=== PATIENT | female | born 1975 | race African-American/Black ===

== ENCOUNTER 2017-07-25 17:00 | Emergency (ER) | payer SELFPAY ==
--- NOTE | 2017-07-25 18:23 | RAD ---
"TWO VIEW LEFT FOREARM: 07/25/17 CLINICAL HISTORY: Injury, pain. FINDINGS: | No fracture or dislocation. No radiopaque foreign body. IMPRESSION: No acute osseous abnormality left forearm. POS: [facility]"
== END 2017-07-25 18:19 | disposition home or self-care (01) ==
LOC: ERS 17:00
DX: M25.551 Pain in right hip (principal); I10 Essential (primary) hypertension; F41.9 Anxiety disorder, unspecified; F32.9 Major depressive disorder, single episode, unspecified; Z87.891 Personal history of nicotine dependence; Y04.2XXA Assault by strike against or bumped into by another person, initial encounter

== ENCOUNTER 2017-09-18 11:44 | Outpatient (CLI) | payer BC | END 2017-09-18 11:45 | disposition home or self-care (01) | LOC: BICMAMMO 11:44 | PROVIDERS: ATTEND Family Medicine | DX: Z12.31 Encounter for screening mammogram for malignant neoplasm of breast (principal); Z80.3 Family history of malignant neoplasm of breast | CPT/HCPCS: 77063; 77067 ==

== ENCOUNTER 2018-02-13 07:50 | Observation (INO) | payer BC ==
[~2018-02-13 07:50] MED LIST: ADENOSINE 60 MG/20 ML VIAL ONE
--- NOTE | 2018-02-13 08:59 | RAD ---
PA AND LATERAL CHEST: History: Chest pain radiating to the left shoulder. FINDINGS: Comparison is made with exam of 11-23-07. FINDINGS: The heart size is normal. The lungs are expanded without focal areas of consolidation, pneumothorax, or pleural effusions. No acute osseous abnormality was seen. IMPRESSION: No radiographic evidence of acute cardiopulmonary process. POS: [facility]
[2018-02-13 09:26] LABS: Bilirubin Negative (Negative); Blood, Urine Negative (Negative); Clarity CLEAR (Clear); Glucose, Urine (Dipstick) Negative (Negative); Leukocyte Negative (Negative); Nitrite Negative (Negative); Protein, Urine (Dipstick) Negative (Neg-Trace); Urobilinogen 0.2 mg/dL (0.2-1.0)
[2018-02-13 09:29] LABS: White Blood Cell (WBC) Count 8.6 thou/uL (4.8-10.8)
[2018-02-13 09:30] LABS: Hemoglobin 13.7 g/dL (12.0-16.0); Red Blood Cell (RBC) Count 4.73 mill/uL (4.20-5.40)
[2018-02-13 09:31] LABS: Mean Corpuscular HGB CONC 31.2 g/dL (32.0-36.0); Mean Corpuscular Hemoglobin 28.9 pg (27.0-31.0); Mean Corpuscular Volume 92.5 fL (78.0-98.0); RBC Distribution Width 12.6 % (11.5-14.5)
[2018-02-13 09:32] LABS: %Neutrophils 60.4 % (42.0-75.0); Mean Platelet Volume 7.8 fL (7.4-10.4); Platelet Count 278 thou/uL (130-400)
[2018-02-13 09:33] LABS: %Eosinophils 2.9 % (0.0-10.0); %Lymphocytes 30.9 % (21.0-51.0); %Monocytes 4.6 % (0.0-10.0)
[2018-02-13 09:34] LABS: #Eosinphils 0.3 thou/uL (0.0-0.7); #Lymphocytes 2.7 thou/uL (1.20-3.40); #Monocytes 0.4 thou/uL (0.11-0.59); #Neutrophils 5.2 thou/uL (1.40-6.50); %Basophils 1.1 % (0.0-1.0)
[2018-02-13 09:35] LABS: #Basophils 0.1 thou/uL (0.0-0.2)
[2018-02-13 09:36] LABS: BHCG - Serum Negative (NEGATIVE); Pregs Control Background? CLEAR/WHITE (CLR/WHITE); Pregs Control Bar Appear? YES (CONTROL BAR)
[2018-02-13 09:45] LABS: ALT (SGPT) 10 U/L (8-55); AST (SGOT) 15 U/L (5-34); Alkaline Phosphatase 56 U/L (40-150); Anion Gap 11 mmol/L (10-20); BUN (Urea Nitrogen) 11 mg/dL (7.0-18.7); Bilirubin, Total 0.8 mg/dL (0.2-1.2); CK (CPK) 135 U/L (29-168); Calc. Creatinine Clearance 0 mL/min (70-130); Calcium 8.9 mg/dL (7.8-10.44); Carbon Dioxide 20 mmol/L (22-29); Chloride 108 mmol/L (98-107); Estimated GFR-MDRD Greater than 90; Globulin 2.7 g/dL (2.4-3.5); Glucose 84 mg/dL (70-105); Lipase 39 U/L (8-78); Potassium 4.3 mmol/L (3.5-5.1); Protein, Total 6.7 g/dL (6.0-8.3); Sodium 135 mmol/L (136-145)
[2018-02-13 09:46] LABS: Specific Gravity, Urine 1.003 (1.002-1.036)
[2018-02-13 09:50] LABS: CKMB 1.4 ng/mL (0-6.6); Troponin I Less than 0.010 ng/mL (< 0.028)
--- NOTE | 2018-02-13 10:10 | ULT ---
VENOUS DOPPLER ULTRASOUND OF THE RIGHT LOWER EXTREMITY: History: Right lower extremity pain. Technique: Grayscale, color flow, and spectral doppler imaging of the deep venous system of the right lower extremity was performed. FINDINGS: There is good flow, compression, and augmentation of the right common femoral, femoral, deep femoral, popliteal, posterior tibial and greater saphenous veins. IMPRESSION: No evidence of DVT in the right lower extremity. POS: [facility]
[2018-02-13] MEDS ORDERED: Nitroglycerin 2% Ointment 1 INCH/1 GM Packet ONE (10:24)
[2018-02-13 11:25] VITALS: BMI 30.4
[2018-02-13] MEDS ORDERED: Ondansetron ODT 4 MG TAB SL PRN (11:27)
[2018-02-13] MEDS ORDERED: Ondansetron PF 4 MG/2 ML Vial IVP PRN (11:27)
[2018-02-13] MEDS ORDERED: Sodium Chloride 0.9% 1,000 ML IV SCH (11:27)
[2018-02-13] MEDS: Acetaminophen 325 MG TAB PO PRN ×2 (13:42→21:14)
[2018-02-13 13:56] LABS: Troponin I Less than 0.010 ng/mL (< 0.028)
[2018-02-13 13:59] LABS: Amphetamine Not Detected (NotDetected); Barbiturates Screen Not Detected (NotDetected); Benzodiazepine Screen Not Detected (NotDetected); Cocaine Metabolite Screen Not Detected (NotDetected); Medtox Control Line Valid? VALID (VALID); Medtox Reader # READER 4; Methadone Not Detected (NotDetected); Methamphetamine Not Detected (NotDetected); Opiate Screen Not Detected (NotDetected); Oxycodone Screen Not Detected (NotDetected); Phencyclidine (PCP) Not Detected (NotDetected); THC/Cannabinoid Screen Not Detected (NotDetected); Tricyclic Screen Not Detected (NotDetected)
[2018-02-13] MEDS ORDERED: Nicotine 14 MG PATCH TD SCH (14:00)
--- NOTE | 2018-02-13 15:45 | HP ---
DATE OF ADMISSION: 02/13/2018 CHIEF COMPLAINT: Chest pain. HISTORY OF PRESENT ILLNESS: Mrs. Noriega is a pleasant 42-year-old female who had presented to the E R this morning with some complaints of midsternal chest pain radiating to left chest. 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 She also complains of some shortness of breath. She states that her chest pain does worsen with cough and deep breath. She also had some complaints in her right calf over the last wee k. She had denied any long trips, but she does admit to smoking about a pack a day. She does deny a ny recent surgery. She was over at a family member's house over the weekend on Monday, she was walki ng on the stairs and slipped on the stairs. She states she fell on her butt, but did not notice any discomfort or pain. She had no symptoms the next day, however, when she got to work this morning, th at is when she first noticed her chest pain began. During her visit in the ER, she underwent lower e xtremity Doppler, which showed no evidence of DVT in the right lower extremity. She also underwent c hest x-ray, which showed no acute cardiopulmonary process. She does have a history of hypertension a nd she states she takes her home medication regularly, however, does not check her blood pressure and has not noticed any changes. She denies any fever, chills, nausea, vomiting or abdominal pain. She states her chest pain does radiate to left shoulder and down left arm. She denies weakness at this time. PAST MEDICAL HISTORY: The patient has a history of hypertension. PAST SURGICAL HISTORY: The patient has a history of laparoscopic knee surgery, right and history of hysterectomy. PSYCHIATRIC HISTORY: Denies any previous psychiatric history at this time. SOCIAL HISTORY: Denies any alcohol use or drug use, but does state she smokes about a pack a day of cigarettes. FAMILY HISTORY: States that her mother had a heart attack in her early 40s and two aunts on her [facility] er's side also had heart attacks at young age. Denies any further family history. ALLERGIES: CEPHALOSPORINS and SULFA. CURRENT HOME MEDICATIONS: Bisoprolol/HCTZ 10 mg/6.25 mg 1 tablet daily. REVIEW OF SYSTEMS: Constitutional: Denies fever, chills or weakness. Eyes: Denies blurred vision, double vision or eye pain. ENT: Denies any hearing loss, rhinorrhea or nosebleeds. Denies sore th roat. Cardiovascular: Does report midsternal chest pain that radiates to the left side of chest and down to her left arm. Denies any palpitations. Respiratory: Denies cough or wheezing, but does re port some mild shortness of breath at rest. Gastrointestinal: Denies abdominal pain, constipation, nausea or vomiting. Musculoskeletal: She does report some radiating pain down left arm. Denies wea kness or swelling. Skin: Denies rashes, itching or lesions. Denies bruising. Neurologic: Denies any weakness. Denies any gait disturbances. Psychiatric: Denies any anxiety or depression. Denies any homicidal or suicidal ideation. PHYSICAL EXAMINATION: VITAL SIGNS: BP 128/93, pulse 76, temperature 98.8, respirations 18, O2 saturations 97% on room air. GENERAL: She is alert and oriented x3, mild acute distress due to chest pain. HEENT: Head is normocephalic, atraumatic. Eyes, her pupils are round and reactive to light. Extrao cular muscles are intact. Oropharynx is within normal limits. Moist mucous membranes noted. No ora l lesions or pharyngeal erythema or exudate noted. NECK: Soft, supple, no JVD, no carotid bruit. CARDIOVASCULAR: Positive S1, S2. Some mild chest pain with palpitation; however, no murmur, no gall op, no rub noted. LUNGS: Clear to auscultation bilaterally. No wheezes, no rhonchi, no rales. ABDOMEN: Soft, nontender, nondistended. Bowel sounds present. No mass was noted. BACK: Unremarkable. Normal range of motion. No CVA tenderness. MUSCULOSKELETAL: Strength 5+ bilaterally upper and lower extremities. Moves all extremities equally . Radial and pedal pulses 2+ bilaterally. Some mild calf tenderness; however, Homans sign negative. SKIN: No rashes or lesions noted. No bruising noted. PSYCHIATRIC: Normal mood and affect. NEUROLOGICAL: Cranial nerves II-XII intact with no acute deficits noted. LABORATORY DATA: WBC 8.6, RBC 4.73, hemoglobin 13.7 and platelet 278,000. D-dimer 0.36. Sodium 135 , potassium 4.3, creatinine 0.79. Troponin less than 0.010 x2. Lipase 39. Serum negative . Urinalysis unremarkable. Toxicology unremarkable. DIAGNOSTIC IMAGING: Lower extremity venous Doppler showed no evidence of DVT in right lower extremit y. PA and lateral chest x-ray showed no evidence of acute cardiopulmonary process. ASSESSMENT AND PLAN: 1. Atypical chest pain, we will rule out cardiac etiology by getting a stress test along with an ech ocardiogram. We will also check serial troponins. We will continue home beta juan francisco and HCTZ for b lood pressure control. Monitor vital signs closely. Pulmonary embolism not likely with normal D-dim er. 2. Hypertension. We will continue home medications including beta juan francisco with HCTZ, we will add IV hydralazine p.r.n. 3. Deep venous thrombosis prophylaxis with Lovenox 40 mg subcu daily. 4. Gastrointestinal prophylaxis with Pepcid 20 mg twice daily, Zofran as needed for nausea. 5. Nicotine abuse, we will start nicotine patch 14 mg daily. The patient was given some education o n smoking cessation. CODE STATUS: The patient is full code. Disposition and plan will be based on clinical course and the patient progress, she will be admitted to observation on telemetry for chest pain rule out.
--- NOTE | 2018-02-13 17:33 | NM ---
CARDIAC SPECT: CLINICAL HISTORY: 42-year-old female with chest pain, hypertension, smoker, and family history of coronary artery disea se. TECHNIQUE: A myocardial perfusion scan was performed using the single isotope one day protocol with technetium-9 9m sestamibi. 10 mCi were injected intravenously for the rest exam followed by 30 mCi for the stress exam. Pharmacologic stress with Adenosine was monitored and interpreted by Dr. Argueta. FINDINGS: Homogeneous tracer distribution is seen in the myocardial segments on stress and rest images without fixed or reversible defects. GATED SPECT LVEF: 63%. WALL MOTION EXAM: Normal. IMPRESSION: Normal myocardial perfusion scan. POS: [facility]
[2018-02-13 17:42] LABS: Troponin I Less than 0.010 ng/mL (< 0.028)
[2018-02-13] MEDS: Famotidine 20 MG TAB PO SCH (21:14)
[2018-02-14 06:16] LABS: Anion Gap 10 mmol/L (10-20); BUN (Urea Nitrogen) 9 mg/dL (7.0-18.7); Calc. Creatinine Clearance 97 mL/min (70-130); Calcium 8.9 mg/dL (7.8-10.44); Carbon Dioxide 27 mmol/L (22-29); Chloride 107 mmol/L (98-107); Estimated GFR-MDRD 90; Glucose 93 mg/dL (70-105); Potassium 4.5 mmol/L (3.5-5.1); Sodium 139 mmol/L (136-145)
[2018-02-14 06:33] LABS: #Basophils 0.1 thou/uL (0.0-0.2); #Eosinphils 0.4 thou/uL (0.0-0.7); #Lymphocytes 3.8 thou/uL (1.20-3.40); #Monocytes 0.5 thou/uL (0.11-0.59); #Neutrophils 3.6 thou/uL (1.40-6.50); %Basophils 1.1 % (0.0-1.0); %Eosinophils 4.6 % (0.0-10.0); %Lymphocytes 45.3 % (21.0-51.0); %Monocytes 5.8 % (0.0-10.0); %Neutrophils 43.2 % (42.0-75.0); Band 3 % (5-11); Eosinophils 2 % (0-10); Hemoglobin 12.7 g/dL (12.0-16.0); Lymphocytes 52 % (21-51); MDiff Complete? YES; Mean Corpuscular HGB CONC 31.8 g/dL (32.0-36.0); Mean Corpuscular Hemoglobin 29.5 pg (27.0-31.0); Mean Corpuscular Volume 92.6 fL (78.0-98.0); Mean Platelet Volume 7.9 fL (7.4-10.4); Monocytes 5 % (0-10); Neutrophil 38 % (42-75); Platelet Count 273 thou/uL (130-400); RBC Distribution Width 12.5 % (11.5-14.5); Red Blood Cell (RBC) Count 4.31 mill/uL (4.20-5.40); White Blood Cell (WBC) Count 8.4 thou/uL (4.8-10.8)
[2018-02-14 08:07] VITALS: BP 107/74; TEMP 98.1
[2018-02-14] MEDS ORDERED: Enoxaparin Sodium 40 MG/0.4 ML SYRINGE SC SCH (09:00)
[2018-02-14] MEDS ORDERED: Bisoprolol Fumarate/HCTZ 10 mg/6.25 mg Tablet PO SCH (09:00)
[2018-02-14] MEDS: Famotidine 20 MG TAB PO SCH (09:13)
[2018-02-14] MEDS: Acetaminophen 325 MG TAB PO PRN (09:13)
--- NOTE | 2018-02-14 09:28 | DIS ---
DATE OF ADMISSION: 02/13/2018 DATE OF DISCHARGE: 02/14/2018 DISCHARGE DIAGNOSES: 1. Chest pain, noncardiac, stable. 2. Hypertension, stable. CONSULTATIONS: None. PERTINENT LABORATORY AND DIAGNOSTIC FINDINGS: WBC 8.4, RBC 4.31, hemoglobin 12.7. D-dimer 0.36. So dium 139, potassium 4.5, creatinine 0.84. Troponin less than 0.010 x3. Serum negative. L ipase 39. Urinalysis unremarkable. Toxicology normal. Chest x-ray showed no acute cardiopulmonary process. Vascular ultrasound right lower extremity showe d no evidence of DVT. Cardiac stress test, showed normal myocardial perfusion. Echocardiogram displ ayed a left ventricular ejection fraction of 50-55%. HOSPITAL COURSE: Ms. Noriega is a pleasant 42-year-old female who had presented to the emergency dep artment with midsternal chest pain that had radiated to left chest and down left arm. She also was c omplaining of right lower extremity pain on and off for the last several weeks. She states the chest pain was reproducible and worse with deep breathing, movement, and cough. In the emergency departme nt, she underwent a Doppler of lower extremity which was negative for DVT. She was treated with symp tomatic management and was admitted overnight for observation. She had underwent a nuclear stress te st which was normal and also underwent an echocardiogram which displayed a left ventricular ejection fraction of 50-55%. Throughout the hospital course, her symptoms did improve. Her chest pain did re solve. She was given Tylenol 650 mg as needed for her pain. She was also continued on her home medi cation of Ziac for hypertension. Her vital signs and lab work were unremarkable throughout the hospi monica course. Prior to discharge, she was seen and examined. Her vital signs were stable. She denied chest pain, shortness of breath or abdominal pain. She had tolerated breakfast well without any com plaints. She was told that her chest pain was noncardiac related and that she should follow up with her primary care physician in 1-2 weeks if her symptoms persist. She had verbalized her kayain g for discharge plan and was found to be medically stable for discharge 02/14/2018. DISCHARGE MEDICATIONS: Bisoprolol/HCTZ 10 mg/6.25 mg 1 tablet daily. FOLLOWUP: The patient is to follow up with her primary care physician in 1-2 weeks'. Her primary ca re physician is Dr. Maura Cuevas. CONDITION ON DISCHARGE: Stable. ACTIVITY: As tolerated. DIET: Regular. CODE STATUS: FULL CODE. DISPOSITION: Home on 02/14/2018.
--- NOTE | 2018-02-17 23:07 | EKG ---
Test Reason : CP Blood Pressure : / mmHG Vent. Rate : 075 BPM Atrial Rate : 075 BPM P-R Int : 126 ms QRS Dur : 082 ms QT Int : 360 ms P-R-T Axes : 041 018 -01 degrees QTc Int : 402 ms Normal sinus rhythm Possible Left atrial enlargement Borderline ECG Confirmed by SANDRA BURR ([id number]), legal editor FILI SKINNER ([id number] on 02/17/2018 11:07:05 PM Referred By: Confirmed By:SANDRA BURR
== END 2018-02-14 09:43 | disposition home or self-care (01) ==
LOC: ERS 07:50 → 2SW 10:00
PROVIDERS: ADMIT Internal Medicine Infectious Disease; ATTEND Internal Medicine Infectious Disease
DX: R07.89 Other chest pain (principal); F17.210 Nicotine dependence, cigarettes, uncomplicated; I10 Essential (primary) hypertension; Z79.899 Other long term (current) drug therapy; Z88.1 Allergy status to other antibiotic agents; Z88.2 Allergy status to sulfonamides
CPT/HCPCS: 36415; 71046; 78452; 80048; 80053; 80306; 81003; 82553; 83690; 84484; 84703; 85025; 85379; 93005; 93017; 93306; 94760; A9500; G0378; J0153

== ENCOUNTER 2018-09-20 09:07 | Outpatient (CLI) | payer OTHER ==
--- NOTE | 2018-09-20 09:39 | MMO ---
Bilateral MAMMO Bilat Screen [facility]DI. CLINICAL HISTORY: Patient is 42 years old and is seen for screening. The patient has the following family history of breast cancer: cousin female and aunt. The patient has no personal history of cancer. VIEWS: The views performed were: bilateral craniocaudal and bilateral mediolateral oblique. FILMS COMPARED: The present examination has been compared to prior imaging studies performed at [facility] on 07/21/2011, 01/23/2013, 07/18/2014 and 09/18/2017. This study has been interpreted with the assistance of computer-aided detection. MAMMOGRAM FINDINGS: The breasts are extremely dense, which may lower the sensitivity of mammography. There are no suspicious masses, suspicious calcifications, or new areas of architectural distortion. IMPRESSION: THERE IS NO MAMMOGRAPHIC EVIDENCE OF MALIGNANCY. A ROUTINE FOLLOW-UP MAMMOGRAM IN 1 YEAR IS RECOMMENDED. ACR BI-RADS Category 1 - Negative MAMMOGRAPHY NOTE: 1. A negative mammogram report should not delay a biopsy if a dominant of clinically suspicious mass is present. 2. Approximately 10% to 15% of breast cancers are not detected by mammography. 3. Adenosis and dense breasts may obscure an underlying neoplasm.
== END 2018-09-20 09:08 | disposition home or self-care (01) ==
LOC: SCSMAMMO 09:07
PROVIDERS: ATTEND Family Medicine
DX: Z12.31 Encounter for screening mammogram for malignant neoplasm of breast (principal); Z80.3 Family history of malignant neoplasm of breast
CPT/HCPCS: 77067

== ENCOUNTER 2021-03-18 08:54 | Outpatient (CLI) | payer BC | END 2021-03-18 08:55 | disposition home or self-care (01) | LOC: BICMAMMO 08:54 | PROVIDERS: ATTEND Family Medicine | DX: Z12.31 Encounter for screening mammogram for malignant neoplasm of breast (principal); Z80.3 Family history of malignant neoplasm of breast | CPT/HCPCS: 77063; 77067 ==

== ENCOUNTER 2022-04-27 08:17 | Outpatient (CLI) | payer BC | END 2022-04-27 08:18 | disposition home or self-care (01) | LOC: BICMAMMO 08:17 | PROVIDERS: ATTEND Student in an Organized Health Care Education/Training Program | DX: N63.21 Unspecified lump in the left breast, upper outer quadrant (principal) | CPT/HCPCS: 77066; G0279 ==

== ENCOUNTER 2023-06-15 08:55 | Outpatient (CLI) | payer OTHER | END 2023-06-15 08:56 | disposition home or self-care (01) | LOC: BICMAMMO 08:55 | PROVIDERS: ATTEND Nurse Practitioner Family | DX: Z12.31 Encounter for screening mammogram for malignant neoplasm of breast (principal); Z80.3 Family history of malignant neoplasm of breast | CPT/HCPCS: 77063; 77067 ==